=== PATIENT | male | born 1940 | race Hispanic/Latino ===

== ENCOUNTER 2018-10-04 15:50 | Emergency (ER) | payer OTHER, MEDICARE ==
[~2018-10-04 15:50] MED LIST: ACET1TAB25 PO; ASPI-555 PO; DULO20CA17 PO; ISOS30TA6 PO; LISI-613 PO; METF-446 PO; OMEP20CA10 PO; SIMV40TA59 PO; TAMS0.4C32 PO; [UNRECOGNIZED DRUG - OTHER] PO
[2018-10-04 16:48] LABS: BASOPHILS % (AUTO) 0.7 % (0.0-5.0); EOSINOPHILS % (AUTO) 1.6 % (0.0-8.0); HEMATOCRIT 33.4 % (42-54); LYMPHOCYTES % (AUTO) 13.3 % (21.0-51.0); MEAN CORPUSCULAR HEMOGLOBIN 33.5 pg (27.0-33.0); MEAN CORPUSCULAR HGB CONC 34.6 g/dL (32.0-36.0); MEAN CORPUSCULAR VOLUME 96.9 fL (79-99); MONOCYTES % (AUTO) 7.3 % (3.0-13.0); NEUTROPHILS % (AUTO) 77.1 % (40.0-77.0); PLATELET COUNT (AUTO) 276 K/uL (130-400); RED BLOOD CELL COUNT(AUTO) 3.45 MIL/uL (4.50-6.20); RED CELL DISTRIBUTION WIDTH 13.3 % (11.0-15.5); WHITE BLOOD COUNT (AUTO) 11.1 K/uL (4.8-10.8)
[2018-10-04 17:07] LABS: CREATININE 1.5 mg/dL (0.5-1.5); INR 0.95 (0.85-1.15); PARTIAL THROMBOPLASTIN TIME 30.8 SEC (26.3-35.5); POTASSIUM 4.2 mmol/L (3.5-5.1)
[2018-10-04 17:12] LABS: ALBUMIN 2.8 g/dL (3.5-5.0); BILIRUBIN,TOTAL 0.6 mg/dL (0.2-1.0); TOTAL PROTEIN, SERUM 7.5 g/dL (6.0-8.3)
[2018-10-04 17:27] LABS: B-TYPE NATRIURETIC PEPTIDE 204 pg/mL (0-100)
[2018-10-04 18:04] LABS: APPEARANCE,URINE Clear (CLEAR); BILIRUBIN,URINE Negative (NEGATIVE); COLOR,URINE Yellow (YELLOW); GLUCOSE, URINE (UA) >=1000 mg/dL (NEGATIVE); KETONES,URINE Negative (NEGATIVE); LEUKOCYTE ESTERASE ,URINE Small (NEGATIVE); NITRATE,URINE Negative (NEGATIVE); OCCULT BLOOD,URINE Moderate (NEGATIVE); PROTEIN,URINE Negative (NEGATIVE)
[2018-10-04 18:21] LABS: RETICULOCYTE % (AUTO) 2.51 % (0.42-2.23)
[2018-10-04 18:22] LABS: BACTERIA,URINE Rare /HPF (None Seen); MUCUS,URINE Moderate LPF (None Seen)
[2018-10-04] MEDS ORDERED: LEVOFLOXACIN 500 MG/D5W 100 ML 100 ML ONE (18:56)
[2018-10-04 22:58] LABS: FERRITIN 104 ng/mL (30-400); IRON, SERUM 46 mcg/dL (65-175)
== END 2018-10-04 20:25 | disposition home or self-care (01) ==
LOC: EDH 15:50
DX: N39.0 Urinary tract infection, site not specified (principal); E11.65 Type 2 diabetes mellitus with hyperglycemia; I10 Essential (primary) hypertension; R53.1 Weakness
CPT/HCPCS: 36415; 71045; 80053; 81001; 82550; 82728; 83540; 83880; 84484; 85025; 85045; 85610; 85730; 87077; 87088; 87186; 93005; 96365; 99284; J1956; 96374

== ENCOUNTER → 2018-12-01 | Outpatient (CLI) | payer OTHER, MEDICARE | END | disposition home or self-care (01) | LOC: SHCH 14:13 | PROVIDERS: ATTEND Internal Medicine Cardiovascular Disease | DX: I51.7 Cardiomegaly (principal); Z95.1 Presence of aortocoronary bypass graft | CPT/HCPCS: 93306 ==

== ENCOUNTER → 2018-12-02 | Outpatient (CLI) | payer OTHER, MEDICARE | END | disposition home or self-care (01) | LOC: SLP 10:00 | PROVIDERS: ATTEND Internal Medicine Cardiovascular Disease | DX: G47.30 Sleep apnea, unspecified (principal) | CPT/HCPCS: 95810 ==

== ENCOUNTER → 2019-01-11 | Outpatient (CLI) | payer OTHER, MEDICARE | END | disposition home or self-care (01) | LOC: SLP 20:18 | PROVIDERS: ATTEND Internal Medicine Cardiovascular Disease | DX: G47.33 Obstructive sleep apnea (adult) (pediatric) (principal); R09.02 Hypoxemia; I10 Essential (primary) hypertension; E11.9 Type 2 diabetes mellitus without complications; F32.9 Major depressive disorder, single episode, unspecified | CPT/HCPCS: 95811 ==

== ENCOUNTER → 2020-04-13 | Outpatient (CLI) | payer OTHER, MEDICARE ==
[~2020-04-13] MED LIST changes: -ASPI-555 PO; +ASPI-556 PO; -DULO20CA17 PO; +DULO20CA18 PO; -OMEP20CA10 PO; +OMEP20CA12 PO; +REGADENOSON 0.4 MG/5 ML PF SYG IVP ONE; +REGADENOSON 0.4 MG/5 ML PF SYG IVP SCH
== END | disposition home or self-care (01) ==
LOC: SHCH 09:16
PROVIDERS: ATTEND Internal Medicine Cardiovascular Disease
DX: I48.91 Unspecified atrial fibrillation (principal); R06.00 Dyspnea, unspecified
CPT/HCPCS: 78452; 93017; 96374; A9500 ×2; J2785

== ENCOUNTER 2020-06-09 06:01 | Day surgery (SDC) | payer OTHER, MEDICARE ==
[2020-06-07 10:10] LABS: BASOPHILS % (AUTO) 0.7 % (0.0-5.0); EOSINOPHILS % (AUTO) 3.2 % (0.0-8.0); LYMPHOCYTES % (AUTO) 18.5 % (21.0-51.0); MEAN CORPUSCULAR HEMOGLOBIN 31.2 pg (27.0-33.0); MEAN CORPUSCULAR HGB CONC 32.4 g/dL (32.0-36.0); MEAN CORPUSCULAR VOLUME 96.1 fL (79-99); NEUTROPHILS % (AUTO) 69.1 % (40.0-77.0); PLATELET COUNT (AUTO) 253 K/uL (130-400); RED BLOOD CELL COUNT(AUTO) 3.85 MIL/uL (4.50-6.20); RED CELL DISTRIBUTION WIDTH 15.5 % (11.0-15.5); WHITE BLOOD COUNT (AUTO) 12.9 K/uL (4.8-10.8)
[2020-06-07 10:15] LABS: CREATININE 1.6 mg/dL (0.5-1.5); POTASSIUM 4.2 mmol/L (3.5-5.1)
[2020-06-07 10:18] LABS: INR 0.92 (0.85-1.15); PARTIAL THROMBOPLASTIN TIME 29.6 SEC (26.3-35.5)
[2020-06-07 10:50] LABS: APPEARANCE,URINE Cloudy (CLEAR); BILIRUBIN,URINE Negative (NEGATIVE); COLOR,URINE Dark Yellow (YELLOW); GLUCOSE, URINE (UA) 500 mg/dL (NEGATIVE); KETONES,URINE Trace mg/dL (NEGATIVE); LEUKOCYTE ESTERASE ,URINE Small (NEGATIVE); NITRATE,URINE Negative (NEGATIVE); OCCULT BLOOD,URINE Large (NEGATIVE); PROTEIN,URINE POS 1+ mg/dL (NEGATIVE)
[2020-06-07 11:31] LABS: BACTERIA,URINE Few /HPF (None Seen); RBC,URINE 26-50 /HPF (0-1)
--- NOTE | 2020-06-08 13:11 | NUR ---
ABNORMAL LABS AND UA REPORTED TO JAY Childs-NO NEW ORDERS WILL PROCEED WITH EXAM
[2020-06-08 15:10] VITALS: BP 172/78
[2020-06-09] VITALS (11 sets, daily range): BP systolic 144–167; BP diastolic 46–81
[~2020-06-09] VITALS: Ht 166.4 cm; Wt 72.5 kg
[~2020-06-09 06:01] MED LIST changes: -ACET1TAB25 PO; +APIX5TAB PO; -ASPI-556 PO; +DULO60CA64 PO; -ISOS30TA6 PO; -LISI-613 PO; +LOSA50TA64 PO; +METO-408 PO; -REGADENOSON 0.4 MG/5 ML PF SYG IVP ONE; -REGADENOSON 0.4 MG/5 ML PF SYG IVP SCH; -SIMV40TA59 PO; +SODIUM CHLORIDE 0.9% 500ML 500 ML IV SCH; +TAMS-1 PO; -[UNRECOGNIZED DRUG - OTHER] PO
[2020-06-09] MEDS ORDERED: SODIUM CHLORIDE 0.9% 1000ML 1,000 ML IV ONE (06:21)
[2020-06-09] MEDS ORDERED: NITROGLYCERIN 2 MG/VIAL VIAL IV ONE (07:20)
[2020-06-09] MEDS ORDERED: HEPARIN SODIUM 1000UNIT/ML 10ML VIAL ONE (07:20)
[2020-06-09] MEDS ORDERED: IOHEXOL-350 50ML VIAL IV ONE (07:20)
[2020-06-09] MEDS ORDERED: LIDOCAINE HCL 2% 20ML ONE (07:20)
[2020-06-09] MEDS ORDERED: IOHEXOL 350 MG/ML 100ML INFUS..BTL IV ONE (07:20)
[2020-06-09] MEDS ORDERED: BIVALIRUDIN 250 MG/VIAL IV ONE (07:20)
[2020-06-09] MEDS ORDERED: SODIUM BICARB 50MEQ 50ML VIAL ONE (07:24)
--- NOTE | 2020-06-09 07:25 | NUR ---
PATIENT TRANSFERRED TO [facility]IL [facility]OR[facility] AND DELIVERY VIA BED BY EDWAR LUND RN
[2020-06-09] MEDS ORDERED: FENTANYL CITRATE PF 50 MCG/1 ML 2ML VIAL ONE (07:54)
[2020-06-09] MEDS ORDERED: MIDAZOLAM HCL 1 MG/ML 2ML VIAL ONE (07:54)
--- NOTE | 2020-06-09 08:45 | NUR ---
PATIENT RETURNED TO DAY PATIENT VIA BED BY ELVIS VANN/ELVIS PEARCE. PATIENT AAOX3, RESPIRATIONS UNLABORED, VITAL SIGNS STABLE, DENIES ANY PAIN AT THIS TIME. DRESSING TO RIGHT GROIN DRY/INTACT, NO BLEEDING OR HEMATOMA NOTED. AREA IS SOFT/NONTENDER. PATIENT INSTRUCTED TO KEEP LLE STRAIGHT AND FLAT.
[2020-06-09] MEDS ORDERED: ATOR40TA71 PO (09:28)
--- NOTE | 2020-06-09 12:45 | NUR ---
DISCHARGE INSTRUCTIONS PROVIDED TO PATIENT'S DAUGHTER VIA TELEPHONE (SHILO LANDERS). FOLLOW UP PROVIDED AND POST PROCEDURE INSTRUCTIONS PROVIDED WELL. INSTRUCTED TO RESUME METFORMIN AND ELIQUIS TOMORROW. ALL QUESTIONS ADDRESSED/ANSWERED.
--- NOTE | 2020-06-09 13:05 | NUR ---
PATIENT DISCHARGED FROM HOSPITAL VIA WHEELCHAIR AND ASSISTED INTO PRIVATE VEHICLE DRIVEN BY FAMILY.
== END 2020-06-09 13:05 | disposition home or self-care (01) ==
LOC: DAH 06:01
PROVIDERS: ATTEND Internal Medicine Cardiovascular Disease
DX: I25.119 Atherosclerotic heart disease of native coronary artery with unspecified angina pectoris (principal); I25.82 Chronic total occlusion of coronary artery; I11.0 Hypertensive heart disease with heart failure; I50.22 Chronic systolic (congestive) heart failure; I48.0 Paroxysmal atrial fibrillation; I25.2 Old myocardial infarction; D68.69 Other thrombophilia; E11.42 Type 2 diabetes mellitus with diabetic polyneuropathy; E78.5 Hyperlipidemia, unspecified; G47.33 Obstructive sleep apnea (adult) (pediatric); Z79.899 Other long term (current) drug therapy; Z79.01 Long term (current) use of anticoagulants; Z79.84 Long term (current) use of oral hypoglycemic drugs; Z95.0 Presence of cardiac pacemaker; Z82.49 Family history of ischemic heart disease and other diseases of the circulatory system; Z87.891 Personal history of nicotine dependence
CPT/HCPCS: 36415; 71045; 80048; 81001; 82948; 85025; 85610; 85730; 93005; 93459; A4215; A4216; A4221; A4222; A4223 ×3; A4606; A4663; C1760; C1769; C1894 ×2; J1644; J2250; J3010; J3490 ×3; J7030; Q9965 ×2; Q9967 ×2; 99156; 99157; J0583

== ENCOUNTER → 2020-07-21 | Outpatient (CLI) | payer OTHER, MEDICARE ==
[~2020-07-21] VITALS: Ht 167.6 cm; Wt 73.5 kg
[~2020-07-21] MED LIST changes: +ATOR40TA71 PO; -SODIUM CHLORIDE 0.9% 500ML 500 ML IV SCH
[2020-07-21 13:45] LABS: BASOPHILS % (AUTO) 0.8 % (0.0-5.0); EOSINOPHILS % (AUTO) 2.1 % (0.0-8.0); HEMATOCRIT 31.2 % (42-54); MEAN CORPUSCULAR HEMOGLOBIN 30.6 pg (27.0-33.0); MEAN CORPUSCULAR HGB CONC 32.1 g/dL (32.0-36.0); MEAN CORPUSCULAR VOLUME 95.4 fL (79-99); MONOCYTES % (AUTO) 8.4 % (3.0-13.0); NEUTROPHILS % (AUTO) 68.4 % (40.0-77.0); PLATELET COUNT (AUTO) 270 K/uL (130-400); RED BLOOD CELL COUNT(AUTO) 3.27 MIL/uL (4.50-6.20); RED CELL DISTRIBUTION WIDTH 14.9 % (11.0-15.5); WHITE BLOOD COUNT (AUTO) 12.6 K/uL (4.8-10.8)
[2020-07-21 13:57] LABS: CREATININE 1.7 mg/dL (0.5-1.5); POTASSIUM 4.4 mmol/L (3.5-5.1)
--- NOTE | 2020-07-24 10:42 | NUR ---
wbc informed cathy christie of elevated wbc. she will inform mary metz and call me back.
[2020-07-24 10:45] VITALS: BP 132/56
--- NOTE | 2020-07-24 10:58 | NUR ---
ELIQUIS ON PHONE WITH DAUGHTER SHILO. SHE STATES PT STOPPED ELIQUIS ON 07/19/20 BECAUSDE " PT WAS BLEEDING FROM HIS KIDNEYS. ". INFORMED . BRENDA BARAHONA. ORDERS RECEIVED TO CANCEL PT FOR NOW. EZEQUIEL CARVALHO WITH INFORM PTS DAUGHTER SHILO.
== END | disposition home or self-care (01) ==
LOC: CANPRESDC → DAH 10:00 → EDSTATUS 07-25 07:00
PROVIDERS: ATTEND Internal Medicine Cardiovascular Disease
DX: Z01.810 Encounter for preprocedural cardiovascular examination (principal); Z20.828 Contact with and (suspected) exposure to other viral communicable diseases; I48.19 Other persistent atrial fibrillation
CPT/HCPCS: 36415; 80048; 85025; C9803; U0003

== ENCOUNTER 2020-09-08 06:28 | Day surgery (SDC) | payer OTHER, MEDICARE ==
[2020-09-04 14:00] VITALS: BP 115/55
[2020-09-04 14:37] LABS: BASOPHILS % (AUTO) 0.7 % (0.0-5.0); EOSINOPHILS % (AUTO) 1.2 % (0.0-8.0); HEMATOCRIT 32.9 % (42-54); LYMPHOCYTES % (AUTO) 15.9 % (21.0-51.0); MEAN CORPUSCULAR HEMOGLOBIN 30.8 pg (27.0-33.0); MEAN CORPUSCULAR HGB CONC 31.9 g/dL (32.0-36.0); MEAN CORPUSCULAR VOLUME 96.5 fL (79-99); MONOCYTES % (AUTO) 9.3 % (3.0-13.0); NEUTROPHILS % (AUTO) 72.4 % (40.0-77.0); PLATELET COUNT (AUTO) 254 K/uL (130-400); RED BLOOD CELL COUNT(AUTO) 3.41 MIL/uL (4.50-6.20); RED CELL DISTRIBUTION WIDTH 15.2 % (11.0-15.5); WHITE BLOOD COUNT (AUTO) 12.2 K/uL (4.8-10.8)
[2020-09-04 14:45] LABS: CREATININE 2.3 mg/dL (0.5-1.5)
[2020-09-04 14:47] LABS: INR 1.04 (0.85-1.15); PROTHROMBIN TIME 11.1 SEC (9.6-11.6)
--- NOTE | 2020-09-07 08:45 | NUR ---
abnormal lab: spoke to luis armando at dr. galvan's office regarding abnormal wbc 12.2,bun 36, and creatine of 2.3. will notify dr. galvan and call back if any orders recieved.
--- NOTE | 2020-09-07 16:09 | NUR ---
JAZZY FROM [facility] CALLED IN REGARDS TO ABNORMAL WBC , PER [facility] REPEAT CBC.
[2020-09-08] VITALS (9 sets, daily range): BP systolic 98–114; BP diastolic 29–69
[~2020-09-08] VITALS: Ht 165.1 cm; Wt 70.8 kg
[~2020-09-08 06:28] MED LIST changes: +DRON400T2 PO; -METO-408 PO; +SODIUM CHLORIDE 0.9% 500ML 500 ML IV SCH; -TAMS-1 PO
--- NOTE | 2020-09-08 06:34 | NUR ---
Preop A&O. VS stable. Denies pain. FBS 132. NPO 09/06/20202029. Cardiac medications and eliquis taken at 0600 as per daughter. Daughter at bedside. Denies chest pain. EKG and CBC done. Belongings at bedside. Ful upper dentures and lower partials removed.
[2020-09-08 06:59] LABS: HEMATOCRIT 31.1 % (42-54); MEAN CORPUSCULAR HEMOGLOBIN 31.3 pg (27.0-33.0); MEAN CORPUSCULAR HGB CONC 33.1 g/dL (32.0-36.0); MEAN CORPUSCULAR VOLUME 94.5 fL (79-99); RED BLOOD CELL COUNT(AUTO) 3.29 MIL/uL (4.50-6.20); WHITE BLOOD COUNT (AUTO) 13.1 K/uL (4.8-10.8)
--- NOTE | 2020-09-08 07:00 | NUR ---
EKG Sinus rhythm noted. Reported to Dr. Shepard. No new orders given. Okay to proceed with cardioversion
[2020-09-08] MEDS ORDERED: LIDOCAINE HCL 1% 20 ML VIAL ONE (08:02)
[2020-09-08] MEDS ORDERED: SUCCINYLCHOLINE CHLORIDE 20 MG/ML 10 ML VIAL ONE (08:03)
[2020-09-08] MEDS ORDERED: PROPOFOL 10 MG/ML 20ML VIAL IV ONE (08:03)
--- NOTE | 2020-09-08 08:24 | NUR ---
Cardioversion procedure 0824 Caterina Mahmood STUD DRIVER entered room, Lashaun Becker RN 0830 Timeout NKDA 54, 12, 110/56, 99% NC 2L/min 0831 First dose of Propofol given by Caterina Kovacs 0832 Shock delivered 100J by Dr Shepard 0833 End of procedure. 50, 13, 89/39, 99% NC 2L/min 0844 Awake. Able to follow simple commands. 0855 Anesthesia end time. Caterina Kovacs, Lashaun Mahmood RN exit room
[2020-09-08] MEDS ORDERED: EPHEDRINE SULFATE 50 MG/ML AMPULE ONE (09:00)
[2020-09-08] MEDS ORDERED: SODIUM CHLORIDE 0.9% 1000ML 1,000 ML IV ONE (09:16)
--- NOTE | 2020-09-08 09:44 | NUR ---
Discharge A&O. Denies pain and nausea. Daughter at bedside. All D/C instructions and Follow up appointment given. Verbalized understanding. IV D/C no redness/swelling noted. Catheter intact. Pressure dressing applied. Transported to private car via wheelchair. Daughter driving.
[2020-09-12] MEDS ORDERED: FINA5TAB41 PO (00:03)
[2020-09-12] MEDS ORDERED: ACET1TAB25 PO (00:03)
[2020-09-12] MEDS ORDERED: FURO20TA4 PO (00:03)
== END 2020-09-08 09:45 ==
LOC: DAH 06:28
PROVIDERS: ATTEND Internal Medicine Cardiovascular Disease
DX: I48.4 Atypical atrial flutter (principal); I44.1 Atrioventricular block, second degree; R94.31 Abnormal electrocardiogram [ECG] [EKG]; I10 Essential (primary) hypertension; E11.9 Type 2 diabetes mellitus without complications; I25.2 Old myocardial infarction; Z79.01 Long term (current) use of anticoagulants; Z79.899 Other long term (current) drug therapy; Z20.828 Contact with and (suspected) exposure to other viral communicable diseases
CPT/HCPCS: 36415 ×2; 80048; 82948; 85025; 85027; 85610; 85730; 92960; 93005 ×2; A4215; A4216; A4221; A4222; A4223 ×3; A4606; A4615; A4663; C9803; J2704; J3490; J7030 ×2; U0003; 99156; J0330